=== PATIENT | male | born 1950 | race African-American/Black ===

== ENCOUNTER 2021-07-02 11:34 | Emergency (ER) | payer BC, MEDICAID ==
[~2021-07-02] VITALS: Ht 188 cm; Wt 153.0 kg
[~2021-07-02 11:34] MED LIST: HYDR-3565 PO; HYDR-4353 PO; IBUP-1986 PO; LISI1TAB51 PO
[2021-07-02 12:36] LABS: EOSINOPHILS # (AUTO) 0.1 X10'3 (0-0.9); MONOCYTES # (AUTO) 0.6 X10'3 (0-0.9); WHITE BLOOD COUNT 5.9 X10'3 (4.5-11.0)
[2021-07-02 12:37] LABS: BASOPHILS % (AUTO) 0.7 % (0-1); EOSINOPHILS % (AUTO) 1.3 % (0-6); HEMATOCRIT 45.5 % (42.0-52.0); HEMOGLOBIN 15.3 g/dl (14.0-17.9); LYMPHOCYTES % (AUTO) 68.5 % (21-51); MEAN CORPUSCULAR HEMOGLOBIN 32.1 PG (27.0-31.0); MEAN CORPUSCULAR HGB CONC 33.7 g/dL (33.0-36.5); MEAN CORPUSCULAR VOLUME 95.3 FL (78-98); MEAN PLATELET VOLUME 9.1 FL (7.4-10.4); MONOCYTES % (AUTO) 9.5 % (2-12); NEUTROPHILS # (AUTO) 1.2 X10'3 (1.8-7.7); PLATELET COUNT 148 X10'3 (140-440); RED BLOOD COUNT 4.78 X10'6 (4.70-6.10); RED CELL DISTRIBUTION WIDTH 15.5 % (11.5-14.5)
[2021-07-02 15:10] VITALS: BP 189/100
[2021-07-02] MEDS ORDERED: AMOX-117 PO (15:22)
[2021-07-02] MEDS ORDERED: ALBU8HFA PO (15:22)
[2021-07-02 16:09] LABS: PLATELET ESTIMATE NORMAL; SCHISTOCYTES FEW
== END 2021-07-02 16:19 | disposition home or self-care (01) ==
LOC: ER 11:35
DX: J20.9 Acute bronchitis, unspecified (principal); Z20.822 Contact with and (suspected) exposure to COVID-19; R50.9 Fever, unspecified; R06.02 Shortness of breath; R05.9 Cough, unspecified; R07.89 Other chest pain; I10 Essential (primary) hypertension; F15.90 Other stimulant use, unspecified, uncomplicated; Z98.890 Other specified postprocedural states; Z88.8 Allergy status to other drugs, medicaments and biological substances; Z79.2 Long term (current) use of antibiotics; Z79.899 Other long term (current) drug therapy
CPT/HCPCS: 36415; 71045; 85008; 85025; 87502; 87503; 87635; 93005; 99285; C9803

== ENCOUNTER 2021-07-26 08:52 | Emergency (ER) | payer BC, MEDICAID ==
[~2021-07-26] VITALS: Ht 188 cm; Wt 113.0 kg
[~2021-07-26 08:52] MED LIST changes: +ALBU8HFA PO
[2021-07-26 12:02] LABS: RED BLOOD COUNT 4.39 X10'6 (4.70-6.10); RED CELL DISTRIBUTION WIDTH 14.7 % (11.5-14.5)
[2021-07-26 12:04] LABS: BASOPHILS # (AUTO) 0.1 X10'3 (0-0.2); BASOPHILS % (AUTO) 0.6 % (0-1); EOSINOPHILS # (AUTO) 0.1 X10'3 (0-0.9); EOSINOPHILS % (AUTO) 0.8 % (0-6); HEMATOCRIT 41.6 % (42.0-52.0); LYMPHOCYTES # (AUTO) 6.9 X10'3 (1.1-4.8); MEAN CORPUSCULAR HEMOGLOBIN 31.9 PG (27.0-31.0); MEAN CORPUSCULAR HGB CONC 33.7 g/dL (33.0-36.5); MEAN CORPUSCULAR VOLUME 94.7 FL (78-98); MEAN PLATELET VOLUME 8.7 FL (7.4-10.4); MONOCYTES # (AUTO) 0.9 X10'3 (0-0.9); MONOCYTES % (AUTO) 8.2 % (2-12); NEUTROPHILS # (AUTO) 2.8 X10'3 (1.8-7.7); NEUTROPHILS % (AUTO) 26.4 % (42-75); PLATELET COUNT 165 X10'3 (140-440); WHITE BLOOD COUNT 10.7 X10'3 (4.5-11.0)
[2021-07-26] MEDS ORDERED: iohexol 350MG/ML 100ml bottle IV ONE (12:13)
[2021-07-26 12:17] LABS: ALANINE AMINOTRANSFERASE 68 U/L (12-78); ALBUMIN 3.5 G/DL (3.4-5.0); ALBUMIN/GLOBULIN RATIO 0.7 (1.1-1.5); ALKALINE PHOSPHATASE 109 IU/L (46-116); ANION GAP 9 (8-16); ASPARTATE AMINO TRANSFERASE 55 U/L (10-37); BILIRUBIN,TOTAL 0.7 MG/DL (0.1-1.0); BLOOD UREA NITROGEN 12 MG/DL (7-18); BUN/CREATININE RATIO 14.3 (5.4-32.0); CALCIUM 9.2 MG/DL (8.5-10.1); CHLORIDE 103 MMOL/L (99-107); CREATININE 0.84 MG/DL (0.60-1.10); GLUCOSE 142 MG/DL (70-104); POTASSIUM 3.7 MMOL/L (3.5-5.1); SODIUM 138 MMOL/L (135-145); TOTAL CARBON DIOXIDE 25.7 MMOL/L (24-32); TOTAL PROTEIN 8.7 G/DL (6.4-8.2); eGFR > 90 ML/MIN
[2021-07-26] MEDS ORDERED: HYDROmorphone inj. 0.5 MG/0.5 ML DISP.SYRIN IV ONE (12:25)
[2021-07-26] MEDS ORDERED: ondansetron/PF 4mg/2ml inj IV ONE (12:25)
--- NOTE | 2021-07-26 13:00 | NUR ---
NOTIFIED PA OF PT HIGH SBP. MD TO PLACE ORDERS.
[2021-07-26] MEDS ORDERED: hydrALAZINE 20mg/ml inj. IV ONE (13:55)
--- NOTE | 2021-07-26 14:55 | NUR ---
PT ACCEPTED AT [facility]
--- NOTE | 2021-07-26 15:38 | NUR ---
MELINDA (DAUGHTER) [phone] EMMETT SCOTT (NEICE) [phone]
--- NOTE | 2021-07-26 15:39 | NUR ---
CSM REMAINS INTACT. PT CONT TO REPORT NUMBNESS IN LEFT ARM, LEFT NECK. PAIN CONT WITH MEDICATION
[2021-07-26] MEDS ORDERED: morphine 4 MG/ML inj SYRINge IV ONE (16:00)
[2021-07-26 16:20] VITALS: BP 175/98
--- NOTE | 2021-07-26 16:22 | NUR ---
ALL PERSONAL BELONGINGS TAKEN HOME BY DAUGHTER. PT HAS CELL PHONE IN HAND
== END 2021-07-26 16:20 ==
LOC: ER 08:52
DX: S12.100A Unspecified displaced fracture of second cervical vertebra, initial encounter for closed fracture (principal); Z20.822 Contact with and (suspected) exposure to COVID-19; I10 Essential (primary) hypertension; M54.2 Cervicalgia; F15.90 Other stimulant use, unspecified, uncomplicated; Z98.890 Other specified postprocedural states; Z88.8 Allergy status to other drugs, medicaments and biological substances; Z79.899 Other long term (current) drug therapy; W10.9XXA Fall (on) (from) unspecified stairs and steps, initial encounter; Y93.89 Activity, other specified; Y92.89 Other specified places as the place of occurrence of the external cause; Y99.8 Other external cause status
CPT/HCPCS: 70450; 70498; 72125; 80053; 85025; 87635; 93005; 96374; 96375; 99291; C9803; J0360; J1170; J2270; J2405; Q9967

== ENCOUNTER 2023-07-21 13:27 | Emergency (ER) | payer BC, MEDICAID ==
[~2023-07-21] VITALS: Ht 188 cm; Wt 106.1 kg
[~2023-07-21 13:27] MED LIST changes: +ALBU18HF2 IH; -ALBU8HFA PO; +APIX5TAB3 PO; +ASPI-1071 PO; +ATOR20TA66 PO; +BUDE10.26 INH; +CARV3.122 PO; +FURO20TA4 PO; -HYDR-3565 PO; -HYDR-4353 PO; -IBUP-1986 PO; +LISI10TA27 PO; -LISI1TAB51 PO; +MULT-1142 PO
[2023-07-21 14:34] LABS: HEMATOCRIT 30.5 % (42.0-52.0); HEMOGLOBIN 9.8 g/dl (14.0-17.9); MEAN CORPUSCULAR HEMOGLOBIN 31.7 PG (27.0-31.0); MEAN CORPUSCULAR HGB CONC 32.2 g/dL (33.0-36.5); MEAN CORPUSCULAR VOLUME 98.5 FL (78-98); PLATELET COUNT 179 X10'3 (140-440); RED CELL DISTRIBUTION WIDTH 17.8 % (11.5-14.5); WHITE BLOOD COUNT 5.9 X10'3 (4.5-11.0)
[2023-07-21 14:41] LABS: ALBUMIN 2.3 G/DL (3.4-5.0); ANION GAP 8 (8-16); BLOOD UREA NITROGEN 18 MG/DL (7-18); BUN/CREATININE RATIO 19.4 (10.0-20.0); C-REACTIVE PROTEIN 1.29 MG/DL (0.0-0.5); CHLORIDE 107 MMOL/L (99-107); CREATININE 0.93 MG/DL (0.60-1.10); GLUCOSE 172 MG/DL (70-104); POTASSIUM 3.6 MMOL/L (3.5-5.1); SODIUM 141 MMOL/L (135-145); TOTAL CARBON DIOXIDE 25.6 MMOL/L (24-32); eCRCL 81 ML/MIN; eGFR > 90 ML/MIN
[2023-07-21 15:02] LABS: ANISOCYTOSIS 1+; ELLIPTOCYTES FEW; PLATELET ESTIMATE NORMAL; TARGET CELLS FEW; TOTAL CELLS COUNTED 100
[2023-07-21 15:03] LABS: POIKILOCYTOSIS FEW
[2023-07-21 16:39] VITALS: BP 120/74; PULSE 62; RESP 15; TEMP 98; O2SAT 96
== END 2023-07-21 16:40 | disposition home or self-care (01) ==
LOC: ER 13:29
DX: Z45.2 Encounter for adjustment and management of vascular access device (principal); I48.91 Unspecified atrial fibrillation; I25.10 Atherosclerotic heart disease of native coronary artery without angina pectoris; I11.0 Hypertensive heart disease with heart failure; I50.9 Heart failure, unspecified; I25.2 Old myocardial infarction; J44.9 Chronic obstructive pulmonary disease, unspecified; F15.90 Other stimulant use, unspecified, uncomplicated; Z88.8 Allergy status to other drugs, medicaments and biological substances; Z79.82 Long term (current) use of aspirin; Z79.899 Other long term (current) drug therapy
CPT/HCPCS: 36415; 80048; 85007; 85025; 85651; 86140; 99283